=== PATIENT | female | born 1950 | race Hispanic/Latino ===

== ENCOUNTER 2017-02-04 08:00 | Outpatient (CLI) | payer MEDICARE, MEDICAID | END 2017-02-04 08:01 | disposition home or self-care (01) | LOC: BICMAMMO 08:00 | PROVIDERS: ATTEND Nurse Practitioner Family | DX: Z12.31 Encounter for screening mammogram for malignant neoplasm of breast (principal); R92.1 Mammographic calcification found on diagnostic imaging of breast | CPT/HCPCS: 77063 ==

== ENCOUNTER 2017-08-04 11:12 | Emergency (ER) | payer MEDICARE, MEDICAID ==
[2017-08-04] MEDS ORDERED: Metoclopramide HCl 10 MG/2 ML VIAL ONE (11:46)
[2017-08-04] MEDS ORDERED: Ondansetron ODT 4 MG TAB ONE (11:46)
[2017-08-04] MEDS ORDERED: Loperamide HCl 2 MG CAP ONE (11:52)
[2017-08-04 12:03] LABS: Band 12 % (5-11); Hemoglobin 14.6 g/dL (12.0-16.0); Lymphocytes 26 % (21-51); MDiff Complete? YES; Mean Corpuscular HGB CONC 35.6 g/dL (32.0-36.0); Mean Corpuscular Hemoglobin 31.8 pg (27.0-31.0); Mean Corpuscular Volume 89.2 fl (81.0-99.0); Mean Platelet Volume 8.7 fL (7.4-10.4); Monocytes 10 % (0-10); Neutrophil 52 % (42-75); PLT Morphology Comment Appears Adequate; Platelet Count 144 thou/uL (130-400); RBC Distribution Width 12.1 % (11.5-14.5); RBC Morphology Normal; White Blood Cell (WBC) Count 7.5 thou/uL (4.8-10.8)
[2017-08-04 12:24] LABS: ALT (SGPT) 87 U/L (8-55); Albumin 3.4 g/dL (3.4-4.8); Alkaline Phosphatase 119 U/L (40-150); Anion Gap 17 mmol/L (10-20); BUN (Urea Nitrogen) 24 mg/dL (9.8-20.1); Bilirubin, Total 0.6 mg/dL (0.2-1.2); Calc. Creatinine Clearance 0 mL/min (70-130); Calcium 8.7 mg/dL (7.8-10.44); Carbon Dioxide 18 mmol/L (23-31); Chloride 102 mmol/L (98-107); Estimated GFR-MDRD 36; Globulin 3.5 g/dL (2.4-3.5); Glucose 119 mg/dL (80-115); Lipase 87 U/L (8-78); Potassium 4.9 mmol/L (3.5-5.1); Protein, Total 6.9 g/dL (6.0-8.3); Sodium 132 mmol/L (136-145)
== END 2017-08-04 13:18 | disposition home or self-care (01) ==
LOC: SCSER 11:12
DX: R19.7 Diarrhea, unspecified (principal); R10.9 Unspecified abdominal pain; E11.9 Type 2 diabetes mellitus without complications; I10 Essential (primary) hypertension; Z79.84 Long term (current) use of oral hypoglycemic drugs
CPT/HCPCS: 80053; 83690; 85025; 93005; 96365; J2765; Q0162

== ENCOUNTER 2018-03-11 08:12 | Outpatient (CLI) | payer MEDICARE, MEDICAID | END 2018-03-11 08:13 | disposition home or self-care (01) | LOC: BICMAMMO 08:12 | PROVIDERS: ATTEND Nurse Practitioner Family | DX: Z12.31 Encounter for screening mammogram for malignant neoplasm of breast (principal); R92.1 Mammographic calcification found on diagnostic imaging of breast | CPT/HCPCS: 77063; 77067 ==